=== PATIENT | female | born 1995 | race Caucasian/White ===

== ENCOUNTER 2018-02-05 07:22 | Inpatient (IN) ==
[2018-02-05 07:58] LABS: Bilirubin,Urine Negative (Negative); Blood,Urine Negative (Negative); Clarity,Urine Clear (Clear); Color,Urine Yellow (Yellow); Glucose,Urine (UA) Normal (Normal); Ketones,Urine Negative (Negative); Leukocyte Esterase,Urine Negative (Negative); Nitrite,Urine Negative (Negative); Protein,Urine Negative (Neg-Trace); Specific Gravity,Urine 1.021 (1.010-1.025); Urobilinogen,Urine Normal (Normal)
[2018-02-05 08:07] LABS: Amphetamine Screen,Urine Negative ng/mL (Cutoff=1000); Barbiturate Screen,Urine Negative ng/mL (Cutoff=200); Benzodiazepines Screen,Urine Negative ng/mL (Cutoff=200); Cannabinoid Screen,Urine Negative ng/mL (Cutoff = 50); Cocaine Screen,Urine Negative ng/mL (Cutoff= 300); Opiate Screen,Urine Negative ng/mL (Cutoff=300); Phencyclidine Screen,Urine Negative ng/mL (Cutoff=25)
--- NOTE | 2018-02-05 08:09 | Emergency Department Note ---
Disposition Clinical Impression: Suicidal ideation Depression Qualifiers: Depression Type: major depressive disorder Major depression recurrence: recurrent Active/Remission status: currently active Major depression episode severity: severe Psychotic features: without psychotic features Qualified Code(s ): F33.2 - Major depressive disorder, recurrent severe without psychotic features Disposition: Admitted As Inpatient Condition: Good Referrals: Janneth Gusman CNP [Primary Care Provider] - Forms: ED Satisfaction Letter Psych HPI - General Chief Complaint: ED Psychiatric Symptoms Stated Complaint: SI Time Seen by Provider: 02/05/18 07:23 Source: patient, family Nursing Notes Reviewed: Yes Vital Signs Reviewed: Yes - History of Present Illness HPI Narrative: 22 YO F here for SI with a PMH of depression, anxiety, and bipolar disorder. Patient states that she has been feeling depressed since Saturday with no known inciting factor. She has suicidal ideation but no plan and no homicidal ideation. Sees pychiatrist Dr. Inocencia Couch who increased her lamictal dosage on Saturday. Recently diagnosed with bipolar disorder. Psychiatrist does not know she is here today. Denies ingesting any substances other than her current medications at their current prescribed dosing and timing and denies harming herself in any other physical manner. Patient has been dealing with depression since she was 16, but states she has never had an episode where she has been committed. She is on effexor, quietapine, depakote. Denies N/V, headache, CP, SOB, dysnea, urinary frequency or urgency, diarrhea, constipation, blood in stool or urine. She was admitted to ED in the company of her mother. - Related Data Home Medications Medication Instructions Recorded Confirmed Quetiapine Fumarate [Seroquel] 50 mg PO HS PRN 12/13/16 07/22/17 Buspirone HCl [Buspar] 10 mg PO BID 07/22/17 07/22/17 Dicyclomine [Bentyl] 20 mg PO QID 07/22/17 07/22/17 Pantoprazole Sodium [Protonix] 40 mg PO DAILY 07/22/17 07/22/17 SUMAtriptan succinate [Imitrex] 25 mg PO Q2H PRN 07/22/17 07/22/17 Venlafaxine HCl [Effexor Xr] 75 mg PO DAILY 07/22/17 07/22/17 Allergies Allergy/AdvReac Type Severity Reaction Status Date / Time latex Allergy Rash Verified 02/05/18 07:25 ibuprofen AdvReac See Verified 02/05/18 07:26 Comments Constitutional: Denies: fever, chills, weakness, night sweats Cardiovascular: Denies: chest pain, palpitations, dyspnea on exertion Respiratory: Denies: cough, dyspnea Gastrointestinal: Denies: abdominal pain, nausea, vomiting Genitourinary: Denies: urgency, dysuria, frequency Neurological: Denies: headache, weakness Psychiatric: Reports: anxiety, depression, suicidal thoughts Past Medical History - Past Medical History Medical history: Reports: other Surgical history: Reports: no surgical history Psychiatric history: Reports: anxiety, depression FORMS ANALYST history: Reports: no FORMS ANALYST history - Social History Smoking Status: Never smoker Smokeless Tobacco Status: No Alcohol use: Reports: none Drug use: Reports: none Physical Exam - General Limitations: no limitations General appearance: alert, in no apparent distress - Head Head exam: atraumatic, normocephalic - Chest Chest inspection: Present: normal inspection, symmetric chest wall rise - Respiratory Respiratory exam: Present: normal lung sounds bilaterally - Cardiovascular Cardiovascular exam: Present: regular rate, normal rhythm, normal heart sounds - Neurological Exam Neurological exam: Present: alert, oriented X3 - Psychiatric Psychiatric exam: Present: depressed, anxious, suicidal ideation. Absent: manic , homicidal ideation - Skin Skin exam: Present: warm, dry, intact, other (no signs of IVDU or self harm). Absent: rash Course Course Narrative: 22 YO F here for SI. Ordered UDS, BAL, and urinalysis. Once results come in will consult 1A for possible admission. Vital Signs Temperature 98.2 F 02/05/18 07:24 Pulse Rate 78 02/05/18 07:24 Respiratory Rate 16 02/05/18 07:24 Blood Pressure 120/79 02/05/18 07:24 O2 Sat by Pulse Oximetry 95 02/05/18 07:24 Temperature 98.2 F 02/05/18 07:28 Pulse Rate 78 02/05/18 07:28 Respiratory Rate 16 02/05/18 07:28 Blood Pressure 120/79 02/05/18 07:28 O2 Sat by Pulse Oximetry 95 02/05/18 07:28 Oxygen Delivery Oxygen Delivery Room Air Psych - MDM Narrative Medical decision making narrative: 1030 hrs.: Patient's labs are back. She was evaluated by 1A. They have agreed to keep her here. Waiting on bed placement. They are in agreement with this plan. Patient and mom are updated. - Lab Data Lab Results 02/05/18 02/05/18 02/05/18 Range/Units 07:39 07:39 07:39 Urine Color Yellow (Yellow) Urine Clarity Clear (Clear) Urine pH 6.0 (5.0-8.0) pH Units Ur Specific [place] 1.021 (1.010-1.025) Urine Protein Negative (Neg-Trace) mg/dL Urine Glucose (UA) Normal (Normal) mg/dL Urine Ketones Negative (Negative) mg/dL Urine Blood Negative (Negative) Urine Nitrite Negative (Negative) Urine Bilirubin Negative (Negative) Urine Urobilinogen Normal (Normal) mg/dL Ur Leukocyte Esterase Negative (Negative) Ur Culture Indicated? NO (NO) Urine Test Negative (Negative) Urine Opiates Screen Negative (Nowudm=935) ng/mL Ur Barbiturates Screen Negative (Klsype=514) ng/mL Ur Phencyclidine Scrn Negative (Cutoff=25) ng/mL Ur Amphetamines Screen Negative (Fzwyju=4293) ng/mL U Benzodiazepines Scrn Negative (Jegvcr=403) ng/mL Urine Cocaine Screen Negative (Cutoff= 300) ng/mL U Marijuana (THC) Screen Negative (Cutoff = 50) ng/mL Ur Drug Screen Interp See Below Ethyl Alcohol (Less than 10) mg/dL 02/05/18 Range/Units 07:44 Urine Color (Yellow) Urine Clarity (Clear) Urine pH (5.0-8.0) pH Units Ur Specific [place] (1.010-1.025) Urine Protein (Neg-Trace) mg/dL Urine Glucose (UA) (Normal) mg/dL Urine Ketones (Negative) mg/dL Urine Blood (Negative) Urine Nitrite (Negative) Urine Bilirubin (Negative) Urine Urobilinogen (Normal) mg/dL Ur Leukocyte Esterase (Negative) Ur Culture Indicated? (NO) Urine Test (Negative) Urine Opiates Screen (Ndaebh=261) ng/mL Ur Barbiturates Screen (Lgsffz=229) ng/mL Ur Phencyclidine Scrn (Cutoff=25) ng/mL Ur Amphetamines Screen (Rhoato=3522) ng/mL U Benzodiazepines Scrn (Hpxsbl=992) ng/mL Urine Cocaine Screen (Cutoff= 300) ng/mL U Marijuana (THC) Screen (Cutoff = 50) ng/mL Ur Drug Screen Interp Ethyl Alcohol < 10 (Less than 10) mg/dL Psychiatric Medical Clearance - Medical Clearance Checklist Medical History: No Social History Section defined Current Vitals: Last Vital Signs Temp 98.2 F 02/05/18 07:28 Pulse 78 02/05/18 07:28 Resp 16 02/05/18 07:28 BP 120/79 02/05/18 07:28 Pulse Ox 95 02/05/18 07:28 Psychiatric Lab Panel: Drug Levels and Toxicity 02/05/18 02/05/18 07:39 07:44 Urine Opiates Screen Negative Ur Barbiturates Screen Negative Ur Phencyclidine Scrn Negative Ur Amphetamines Screen Negative U Benzodiazepines Scrn Negative Urine Cocaine Screen Negative U Marijuana (THC) Screen Negative Ethyl Alcohol < 10 Attestation Statement - Attestation Attestation: This documentation is done with the assistance of Dragon dictation. Despite efforts made to ensure accuracy, there may be inaccuracies in justowriter operator or spelling and typographical errors. I examined this patient and my medical decision-making was reviewed with the Resident Physician. I agree with the documented findings, disposition and treatment plan as described except to the extent set forth below. Patient seen and evaluated Dr. Stern myself, agree with his evaluation management plan, suprascapular the patient's stay. Patient presents with chronic anxiety and depression. Depression seems to be the biggest problem today. She has had since she was a teenager. She has been on multiple different medications since psychiatry in the outpatient setting. They started her on Lamictal and she was not doing well on a low-dose of increased her dose on Saturday and she still feels very depressed. Returning in and see if therapist but mom states her some insurance issues and make that difficult. She says she is depressed she does not think she would hurt herself but she has had ideations. Not homicidal. No drugs or alcohol. I got a urine drug screen and alcohol and that was negative. is negative. Spoke with 1A and they are to come up and evaluated the patient. Mom inpatient agreement with this plan.
[2018-02-05] MEDS ORDERED: Haloperidol Lactate 5 MG/ML VIAL IM PRN (18:10)
[2018-02-05] MEDS ORDERED: Acetaminophen 325 MG TABLET PO PRN (18:10)
[2018-02-05] MEDS ORDERED: Mag Hydrox/Al Hydrox/Simeth 30 ML UDC PO PRN (18:10)
[2018-02-05] MEDS ORDERED: MOM Conc 10 ML UD.LIQ PO PRN (18:10)
[2018-02-05] MEDS ORDERED: *HR* LORazepam 1 MG TABLET PO PRN (18:10)
[2018-02-05] MEDS ORDERED: hydrOXYzine pamoate 25 MG CAPSULE PO PRN (18:10)
[2018-02-05] MEDS ORDERED: *HR* LORazepam 2 MG/ML VIAL IM PRN (18:10)
[2018-02-05] MEDS ORDERED: traZODone 50 MG TABLET PO PRN (18:10)
[2018-02-05] MEDS ORDERED: SUMAtriptan succinate 25 MG TABLET PO PRN (18:13)
[2018-02-06] MEDS: lamoTRIgine 25 MG TABLET PO SCH (08:50)
[2018-02-06] MEDS: Venlafaxine XR (24 HR) 150 MG CAP.ER.24H PO SCH (09:25)
--- NOTE | 2018-02-06 13:25 | Psychiatry History & Physical ---
Date of Encounter: 02/06/18 Time of Encounter: 13:00 History of Present Illness Patient Stated Chief Complaint: Suicidal ideation Medicare Admission Attestation: For traditional Medicare patients the provided hospital inpatient services are reasonable and necessary and in the case of services not specified as inpatient -only under 42 CFR 419.22 (n), that they are appropriately provided as inpatient services in accordance 42 CFR 412.3. For Critical Access Hospital the patient may reasonably be expected to be discharged or transferred to a hospital within 96 hours after admission to the Critical Access Hospital. Admitted From: Emergency Dept History of Present Illness: Ms. Rodriguez is a 22 year old female admitted from the emergency department for suicidal ideation. Patient reports increasing thoughts of suicide and denied any triggers or precipitating factors. Patient has been followed at [facility] by Dr. Penny for treatment of depression and PTSD and anxiety for the past couple years. She is managed by medication and recently was started on Lamictal and the dose was increased. Patient denies any problem with sleep or mood swings. She denied any use of alcohol or drugs. 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 Patient has strong family history of depression and bipolar disorder from her mother's side and father's side. She denies any racing thoughts she denied any auditory or visual hallucinations admitted to having suicidal thoughts. Past Med Surg Social Fam HX - Past Medical History Medical history: asthma, other - Past Psychiatric History Psychiatric history: Reports: anxiety, bipolar, depression, PTSD. Denies: previous psychiatric hospitalization - Past Surgical History Surgical History: no surgical history - Social History Smoking Status: Never smoker Smokeless Tobacco Status: No Alcohol use: none Drug use: none - Family History Mother Adopted: [place]: [place] Age: 45 Family Member Ethnicity: Non- Living Status: Still Living Hx Family Cardiac Disorders: Yes (recent episodes of chest pain) Hx Family Respiratory Disorders: No Hx Family Cancer: Yes (maternal GM-ovarian CA) Hx Family GI Disorders: No Hx Family Genitourinary Disorders: No Hx Family Endocrine Disorder: No Hx Family Musculoskeletal Disorders: No Hx Family Neuromuscular Disorders: No Hx Family Neurologic Disorders: No Hx Family HEENT Disorders: No Hx Family Autoimmune Disorders: No Hx Family Reproductive Disorders: Yes (hysterectomy due to ovarian cysts) Hx Family Psychosocial Disorders: Yes (depression, PTSD) Hx Family Medical Disorders: No Medications & Allergies SUMAtriptan succinate [Imitrex] 25 mg PO Q2H PRN 07/22/17 [History] Omeprazole [PriLOSEC] 40 mg PO DAILY 02/05/18 [History] Quetiapine Fumarate [Seroquel] 200 mg PO HS 02/05/18 [History] Venlafaxine XR (24 HR) [Effexor XR] 150 mg PO DAILY 02/05/18 [History] lamoTRIgine [Lamictal] 50 mg PO DAILY 02/05/18 [History] 3 Allergy/AdvReac Type Severity Reaction Status Date / Time latex Allergy Rash Verified 02/05/18 11:48 ibuprofen AdvReac See Verified 02/05/18 11:48 Comments Review of Systems Psychiatric: Reports: suicidal ideation Exam - HEENT Head exam IM: Present: atraumatic Eye exam IM: Present: EOMI, normal appearance, PERRL ENT exam IM: Present: normal exam - Neurological Neurological exam: Present: CN II-XII intact - Respiratory Respiratory exam IM: Present: CTAB - GI/Abdominal GI/Abdominal exam IM: Present: normal bowel sounds, soft. Absent: tenderness - Extremities Extremities exam IM: Present: full ROM - Skin Skin exam IM: Present: dry, warm - Constitutional Vitals: Temp Pulse Resp BP Pulse Ox 97.7 F 105 20 113/80 95 02/06/18 09:00 02/06/18 09:00 02/06/18 09:00 02/06/18 09:00 02/05/18 07:28 General appearance: age & developmentally appropriate, well-groomed, well- nourished, obese - Musculoskeletal Gait: normal Station: relaxed Strength & Tone: normal for patient - Psychiatric Patient Orientation: Yes Person, Yes Time, Yes Place Level of alertness: Alert Behavior: calm, cooperative Psychomotor activity: Normal Eye Contact: Maintains Eye Contact Mood Description: Euthymic/stable Affect description: congruent with mood, full range Speech Volume: Normal Speech pattern: normal rate, normal rhythm, normal tone, fluent, spontaneous Language & Vocabulary: consistent with education Thought Process: Linear, Goal Oriented Thought Content: Yes Suicidal ideation, No Homicidal ideation, No Overt delusions Perceptual Disturbances: No Auditory hallucinations, No Visual hallucinations Attention Span Ability: Capable of Focused Attention Memory Description: Grossly Intact Patient Reliability: Reliable Historian Fund of knowledge: Yes abstraction ability, Yes average, Yes aware of current events Intelligence Estimate: Average Judgment: Limited Insight: Partial Results - Labs Labs: Laboratory Last Values Urine Color Yellow (Yellow) 02/05/18 07:39 Urine Clarity Clear (Clear) 02/05/18 07:39 Urine pH 6.0 pH Units (5.0-8.0) 02/05/18 07:39 Ur Specific [place] 1.021 (1.010-1.025) 02/05/18 07:39 Urine Protein Negative mg/dL (Neg-Trace) 02/05/18 07:39 Urine Glucose (UA) Normal mg/dL (Normal) 02/05/18 07:39 Urine Ketones Negative mg/dL (Negative) 02/05/18 07:39 Urine Blood Negative (Negative) 02/05/18 07:39 Urine Nitrite Negative (Negative) 02/05/18 07:39 Urine Bilirubin Negative (Negative) 02/05/18 07:39 Urine Urobilinogen Normal mg/dL (Normal) 02/05/18 07:39 Ur Leukocyte Esterase Negative (Negative) 02/05/18 07:39 Ur Culture Indicated? NO (NO) 02/05/18 07:39 Urine Test Negative (Negative) 02/05/18 07:39 Urine Opiates Screen Negative ng/mL (Qzahqh=850) 02/05/18 07:39 Ur Barbiturates Screen Negative ng/mL (Ekrwyj=396) 02/05/18 07:39 Ur Phencyclidine Scrn Negative ng/mL (Cutoff=25) 02/05/18 07:39 Ur Amphetamines Screen Negative ng/mL (Usrokg=9514) 02/05/18 07:39 U Benzodiazepines Scrn Negative ng/mL (Bwrhmg=699) 02/05/18 07:39 Urine Cocaine Screen Negative ng/mL (Cutoff= 300) 02/05/18 07:39 U Marijuana (THC) Screen Negative ng/mL (Cutoff = 50) 02/05/18 07:39 Ur Drug Screen Interp See Below 02/05/18 07:39 Ethyl Alcohol < 10 mg/dL (Less than 10) 02/05/18 07:44 Assessment and Plan (1) Severe recurrent major depression without psychotic features Current visit: Yes Status: Acute Plan: Admit inpatient for safety and stabilization, Close observation, Suicide Precautions per unit protocol, Encourage participation in unit milieu, Group Therapy, Monitor sleep, Monitor appetite Additional Plan: We will continue current medications and monitor patient response. Risks, benefits, side effects, alternatives discussed w/pt: Yes Patient agreeable to treatment: Yes Estimated Length of Stay (Days): 3 (2) Suicidal ideation Current visit: Yes Status: Acute Plan: Admit inpatient for safety and stabilization, Close observation, Suicide Precautions per unit protocol, Encourage participation in unit milieu, Group Therapy, Monitor sleep, Monitor appetite
[2018-02-07] MEDS: lamoTRIgine 25 MG TABLET PO SCH (09:03)
[2018-02-07] MEDS: Venlafaxine XR (24 HR) 150 MG CAP.ER.24H PO SCH (09:03)
--- NOTE | 2018-02-07 14:03 | Psychiatry Progress Note ---
Date of Encounter: 02/07/18 Time of Encounter: 13:30 Subjective Interval history: Patient seen for follow-up. Case discussed with treatment team. Patient reports feeling relaxed she reports good night sleep. She participated in groups and enjoy the interaction. She denies suicidal ideation at this time. She denied any side effects of medication. I discussed with her then needs to spend more time in the hospital to evaluate mood changes and suicidal thoughts. Patient did not list any specific stressor oh crisis. She is agreeable to the plan of care. Review of Systems Psychiatric: Reports: suicidal ideation Results - Vital Signs Vital Signs: Temp Pulse Resp BP Pulse Ox 98.5 F 94 18 111/77 95 02/07/18 08:41 02/07/18 08:41 02/07/18 08:41 02/07/18 08:41 02/05/18 07:28 Assessment and Plan (1) Severe recurrent major depression without psychotic features Current visit: Yes Status: Acute Plan: Continue hospitalization, Close observation, Suicide Precautions per unit protocol, Encourage participation in unit milieu, Group Therapy, Monitor sleep, Monitor appetite Risks, benefits, side effects, alternatives discussed w/pt: Yes Patient agreeable to treatment: Yes (2) Suicidal ideation Current visit: Yes Status: Acute Plan: Continue hospitalization, Close observation, Suicide Precautions per unit protocol, Encourage participation in unit milieu, Group Therapy, Monitor sleep, Monitor appetite Consult Discharge Plan - Plan Referrals: [facility] [Outside] - 03/03/18 9:00 am (The above appointment is with Dr. Couch for outpatient psychiatric assessment and medication management services. You had another appointment with Dr. Couch scheduled on 04/14/2018 at 9:00 AM as well. Please arrive 10 minutes early to all appointments to complete the check-in process. Please bring your insurance card (or [employer] award letter) and photo ID. If you are unable to keep any scheduled appointment, 24 hour business notice of cancellation is expected. The above appointment(s) reflects first availability. You may contact the office regularly to check for cancellations that may allow you to be seen sooner. ) [facility] [Outside] - 02/14/18 12:30 pm (The above appointment is with Hussein Rutledge for outpatient mental health counseling services. Please bring your photo ID, insurance card and medication list to this appointment.) Psychiatry Exam - Constitutional Vitals: Temp Pulse Resp BP Pulse Ox 98.5 F 94 18 111/77 95 02/07/18 08:41 02/07/18 08:41 02/07/18 08:41 02/07/18 08:41 02/05/18 07:28 General appearance: age & developmentally appropriate, well-groomed, well- nourished, obese - Musculoskeletal Gait: normal Station: relaxed Strength & Tone: normal for patient - Psychiatric Patient Orientation: Yes Person, Yes Time, Yes Place Level of alertness: Alert Behavior: calm, cooperative Psychomotor activity: Normal Eye Contact: Maintains Eye Contact Mood Description: Euthymic/stable Affect description: congruent with mood, full range Speech Volume: Normal Speech pattern: normal rate, normal rhythm, normal tone, fluent, spontaneous Language & Vocabulary: consistent with education Thought Process: Linear, Goal Oriented Thought Content: No Suicidal ideation, No Homicidal ideation, No Overt delusions Perceptual Disturbances: No Auditory hallucinations, No Visual hallucinations Attention Span Ability: Capable of Focused Attention Memory Description: Grossly Intact Patient Reliability: Reliable Historian Fund of knowledge: Yes abstraction ability, Yes aware of current events Intelligence Estimate: Average Judgment: Limited Insight: Partial
[2018-02-08 08:26] VITALS: BP 123/81
[2018-02-08] MEDS: Venlafaxine XR (24 HR) 150 MG CAP.ER.24H PO SCH (08:48)
[2018-02-08] MEDS: lamoTRIgine 25 MG TABLET PO SCH (08:48)
--- NOTE | 2018-02-08 08:49 | Discharge Summary ---
Date of Encounter: 02/08/18 Time of Encounter: 08:44 Diagnosis - Discharge Diagnosis (1) Severe recurrent major depression without psychotic features Status: Acute Medications - Discharge Medications SUMAtriptan succinate [Imitrex] 25 mg PO Q2H PRN 07/22/17 [History] Omeprazole [PriLOSEC] 40 mg PO DAILY 02/05/18 [History] Quetiapine Fumarate [Seroquel] 200 mg PO HS 02/05/18 [History] Venlafaxine XR (24 HR) [Effexor Xr] 150 mg PO DAILY 02/05/18 [History] lamoTRIgine [Lamictal] 50 mg PO DAILY 02/05/18 [History] 3 Allergy/AdvReac Type Severity Reaction Status Date / Time latex Allergy Rash Verified 02/05/18 11:48 ibuprofen AdvReac See Verified 02/05/18 11:48 Comments Provider Date of admission: 02/05/18 11:22 Primary care physician: PCP NONE Discharging clinician: Mariaelena Sage Psychiatry Exam - Constitutional Vitals: Temp Pulse Resp BP Pulse Ox 97.8 F 107 16 123/81 95 02/08/18 08:26 02/08/18 08:26 02/08/18 08:26 02/08/18 08:26 02/05/18 07:28 General appearance: age & developmentally appropriate, well-groomed, well- nourished - Musculoskeletal Gait: normal Station: relaxed Strength & Tone: normal for patient - Psychiatric Patient Orientation: Yes Person, Yes Time, Yes Place Level of alertness: Alert Behavior: calm, cooperative Psychomotor activity: Normal Eye Contact: Maintains Eye Contact Mood Description: Euthymic/stable Affect description: congruent with mood, full range Speech Volume: Normal Speech pattern: normal rate, normal rhythm, normal tone, fluent, spontaneous Language & Vocabulary: consistent with education Thought Process: Linear, Goal Oriented Thought Content: No Suicidal ideation, No Homicidal ideation, No Overt delusions Perceptual Disturbances: No Auditory hallucinations, No Visual hallucinations Attention Span Ability: Capable of Focused Attention Memory Description: Grossly Intact Patient Reliability: Reliable Historian Fund of knowledge: Yes abstraction ability, Yes aware of current events Intelligence Estimate: Average Judgment: Fair Insight: Partial Hospital Course Hospital course: Ms. Rodriguez is a 22 year old female who was admitted secondary to suicidal thoughts. Client reports having suicidal thoughts one other time in her life but managed to work through it. This time she decided to ask for help. No prior hospitalizations. Sees Dr. Couch as an outpatient. Diagnosed with Bipolar II. Continued on home meds throughout hospitalization (Lamictal recently increased). Did well on the unit. Bright, social, interacted appropriately with peers. SI went away shortly after admission. Continues to deny SI today. Mood stable. Bright, reactive affect. Future oriented. Feels safe to go home. Lives with mother and she is supportive. Safety planning done with mother. - Time Spent with Patient Total time spent providing and/or coordinating discharge services: Assessment and Plan - Patient/Caregiver Discharge Instructions Activity: resume usual activities as tolerated Diet: regular diet - Follow up Plan Follow up with: [facility] [Outside] - 03/03/18 9:00 am (The above appointment is with Dr. Couch for outpatient psychiatric assessment and medication management services. You had another appointment with Dr. Couch scheduled on 04/14/2018 at 9:00 AM as well. Please arrive 10 minutes early to all appointments to complete the check-in process. Please bring your insurance card (or [facility] award letter) and photo ID. If you are unable to keep any scheduled appointment, 24 hour business notice of cancellation is expected. The above appointment(s) reflects first availability. You may contact the office regularly to check for cancellations that may allow you to be seen sooner. ) [facility] [Outside] - 02/14/18 12:30 pm (The above appointment is with Hussein Rutledge for outpatient mental health counseling services. Please bring your photo ID, insurance card and medication list to this appointment.) Functional capacity at discharge: independent ambulation Overall status at discharge: Stable Disposition: Home, Self-Care Quality - Multiple Antipsychotics Patient discharged on 2 or more antipsychotic medications: No Procedures - Procedures Procedures: Medication Management, Crisis Stabilization, Supportive Therapy, Group Therapy
== END 2018-02-08 10:10 | disposition home or self-care (01) | DRG 885 ==
LOC: EMEROOARM 07:22 → 1ANU 11:22
PROVIDERS: ADMIT Psychiatry & Neurology Psychiatry; ATTEND Psychiatry & Neurology Psychiatry